=== PATIENT | male | born 1985 | race Caucasian/White ===

== ENCOUNTER 2016-10-07 10:00 | Inpatient (IN) | payer OTHER, MEDICAID ==
--- NOTE | 2016-10-06 10:43 | GHP ---
[f rep st] PREOP HISTORY AND PHYSICAL DATE OF ADMISSION: 10/07/2016 PROBLEM: Left hip avascular necrosis. HISTORY OF PRESENT ILLNESS: The patient is a 31-year-old male who will be admitted for a left total hip arthroplasty with Dr. Maddox at the [facility] on October 07, 2016. The patient first became aware of his left hip pain 5 months ago. It was fairly insidious in onset. Initially he tried physical therapy, which did not help. After several months of worsening pain, he sought orthopedic consultation and was diagnosed with AVN, both by plain film and confirmed with MRI. Because of his worsening pain, the patient has elected to proceed with a total hip arthroplasty. PAST MEDICAL HISTORY: Pertinent for schizophrenia and COPD and hepatitis of unknown type. CURRENT MEDICATIONS: Advair Diskus, aripiprazole 20 mg, baclofen 10 mg, benztropine 1 mg, clonazepam 0.25 mg, gabapentin 300 mg, hydrocodone 7.5/ ibuprofen 200 mg, montelukast 10 mg. ALLERGIES: None. SOCIAL HISTORY: The patient lives at [facility]. He is single. He smokes half pack of cigarettes per day since the age of 11. He has no alcohol intake. FAMILY HISTORY: Noncontributory. PAST SURGICAL HISTORY: None. PHYSICAL EXAMINATION: GENERAL: He is a healthy-appearing 31-year-old male. VITALS: Height 5 feet 9 inches tall, weight 250 pounds, BMI 36.9. HEENT: Head is normocephalic, atraumatic. Eyes are PERRLA. Conjunctivae and sclerae clear. Mouth: He has good oral hygiene without any loose teeth. LUNGS: Clear. HEART: Regular rate and rhythm without murmurs, gallops, or rubs. EXTREMITIES: Pertinent findings are limited due to the patient's left hip. He has full hip extension, 90 degrees of flexion, 20 degrees of external rotation, 10 degrees of internal rotation and 30 degrees of abduction. DIAGNOSTIC IMAGING: Recent x-rays and MRI shows left hip AVN of the femoral head, moderate to severe in nature. IMPRESSION ON ADMISSION: 1. Left hip avascular necrosis. 2. Asthma/chronic obstructive pulmonary disease. 3. Schizophrenia. 4. Obesity. 5. History of hepatitis of unknown type. PLAN: The plan will be for the patient to undergo a left total hip arthroplasty with Dr. Maddox at [facility] on October 07, 2016. The surgery has been described to the patient including the risks, benefits and expectations. He understands the risk of traumatic nerve injury, infection, leg length discrepancy or hip dislocation. He understands that because of his young age, he is at risk for future revision surgery. All his questions have been answered and he consents to surgery today. /[id number]/MODL MTDD
[~2016-10-07 10:00] MED LIST: ACETAMINOPHEN 325 MG TAB PO ONE; CEFAZOLIN 2 GM/DEXTR 100 ML IV ONE; CHLORHEXIDINE GLUC HIBICLENS 118 ML BTL TP ONE; DEXAMETHASONE 4 MG/ML VIAL IVP ONE; FAMOTIDINE 20 MG TAB PO ONE; NS IV ONE; POVIDONE-IODINE 20 ML in SODIUM CL IRRIG SOLUTION 500 ML IRR ONE; ROPI/epiNEPH/KETOROLAC JOINT COCKTAIL IU ONE; TRANEXAMIC ACID IV ONE
[2016-10-07] MEDS ORDERED: PROPOFOL 200 MG/20 ML VIAL ONE ×5 (10:30→12:34)
[2016-10-07] MEDS ORDERED: ceFAZolin 1 GM/5 ML SYR ONE (10:47)
[2016-10-07] MEDS ORDERED: FAMOTIDINE 20 MG TAB ONE (10:51)
[2016-10-07] MEDS ORDERED: ACETAMINOPHEN 325 MG TAB ONE (10:51)
[2016-10-07] MEDS ORDERED: DEXAMETHASONE 4 MG/ML VIAL ONE (10:51)
[2016-10-07] MEDS ORDERED: LIDOCAINE 1% 2 ML INJ ONE (10:52)
[2016-10-07] MEDS ORDERED: CEFAZOLIN 2 GM/DEXTROSE/100 ML BAG IV ONE ×2 (10:52→10:53)
[2016-10-07] MEDS ORDERED: LIDOCAINE 1% 5 ML SDV ID PRN (11:09)
[2016-10-07] MEDS ORDERED: LR 1,000 ML IV ONE (11:09)
[2016-10-07] MEDS ORDERED: MIDAZOLAM 2 MG/2 ML VIAL ONE (11:33)
--- NOTE | 2016-10-07 13:38 | POSTOPPROG ---
Post Op Note Date of Operation: 10/07/16 Surgeon: Calderon Maddox Molding Machine Operator Helper: Eliezer Anesthesiologist: Sawyer Anesthesia: IV Sedation, Spinal Post-op Diagnosis: left hip AVN Procedure: L FEDE Inf/Abcess present in the surg proc area at time of surgery?: No EBL: 100-500
[2016-10-07] MEDS ORDERED: clonazePAM 0.5 MG TAB PO PRN (13:50)
[2016-10-07] MEDS ORDERED: CALCIUM CARBONATE 500 MG CHEWABLE TAB PO PRN (13:50)
[2016-10-07] MEDS ORDERED: ALBUTEROL 60 PUFFS/8 GM MDI IH PRN (13:50)
[2016-10-07] MEDS ORDERED: PROMETHAZINE HCL 25 MG SUPPR PR PRN (13:51)
[2016-10-07] MEDS ORDERED: NS 500 ML IV PRN (13:51)
[2016-10-07] MEDS ORDERED: ONDANSETRON DISINTEGRATING 4 MG TAB PO PRN (13:51)
[2016-10-07] MEDS ORDERED: traMADol 50 MG TAB PO PRN (13:51)
[2016-10-07] MEDS ORDERED: LACTULOSE 20 GM/30 ML UDCUP PO PRN (13:51)
[2016-10-07] MEDS ORDERED: ONDANSETRON 4 MG/2 ML VIAL IVP PRN (13:51)
[2016-10-07] MEDS ORDERED: diphenhydrAMINE 25 MG CAP PO PRN (13:51)
[2016-10-07] MEDS ORDERED: PHARMACY PAIN CONSULT 1 EA MISC PRN (13:51)
[2016-10-07] MEDS ORDERED: CYCLOBENZAPRINE 10 MG TAB PO PRN (13:51)
[2016-10-07] MEDS ORDERED: DIPHENOXYLATE/ATROPINE LOMOTIL 1 TAB PO PRN (13:51)
[2016-10-07] MEDS ORDERED: BISACODYL 10 MG SUPP PR PRN (13:51)
[2016-10-07] MEDS ORDERED: PROMETHAZINE HCL 25 MG/ML INJ IVP PRN (13:51)
[2016-10-07] MEDS ORDERED: MAGNESIUM HYDROXIDE 30 ML UDCUP PO PRN (13:51)
[2016-10-07] MEDS ORDERED: POLYETHYLENE GLYCOL 3350 17 GM PKT PO PRN (13:51)
[2016-10-07] MEDS ORDERED: TEMAZEPAM 15 MG CAP PO PRN (13:51)
[2016-10-07] MEDS ORDERED: fentaNYL 100 MCG/2 ML INJ ONE (13:56)
[2016-10-07] MEDS ORDERED: HYDROmorphONE/DILAUDID 1 MG/ML SYR ONE (13:56)
[2016-10-07] MEDS ORDERED: LR 1,000 ML IV SCH (14:00)
[2016-10-07] MEDS ORDERED: oxyCODONE IR 5 MG TAB ONE (14:24)
--- NOTE | 2016-10-07 14:57 | GOP ---
[f rep st] OPERATIVE REPORT DATE OF OPERATION: 10/07/2016 SURGEON: Calderon Maddox MD AGENCY MANAGER: Norm Josue PA-C and Keith Pinto CFA. ANESTHESIA: A combination of Marcaine, spinal, and IV sedation. ANESTHESIOLOGIST: By Mj Jacques MD. PREOPERATIVE DIAGNOSIS: Left hip avascular necrosis. POSTOPERATIVE DIAGNOSIS: Left hip avascular necrosis. PROCEDURE PERFORMED: A left total hip arthroplasty, Oxinium femoral head on highly cross-linked renato yethylene cup liner. FINDINGS: DESCRIPTION OF PROCEDURE: The patient was given 2 g of preoperative IV Ancef within 60 minutes of s urgery. He also received IV tranexamic acid at a dose of 20 mg/kg. He was placed on the operating room table and given spinal anesthesia with Marcaine by Dr. Mj Jacques. He was then placed supin e and given IV sedation. A Bustamante catheter was not used. He wore a SHE stocking and SCD on the nono perative leg. He was rolled to the right lateral decubitus position. The position was secured with the pegboard table attachment. An axillary roll was used, and all pressure points were carefully p added. I was careful to lock his pelvis in a vertical position. His perineum was isolated with deb stic adhesive drapes. The left hip and left lower extremity were prepped with ChloraPrep. They wer e draped free using sterile sheets, stockinette, and Ioban plastic drapes. The World Health Organization time-out was performed to verify the correct surgical side and site an d the correct patient identity. The Thomson time-out was also performed. I made a 6-inch straight oblique posterolateral hip skin incision. Subcutaneous tissues were sharpl y divided, and hemostasis was obtained using electrocautery. He had large muscular buttocks. His f ascia paulino was identified and split along the axis of its fibers. I then curved posteriorly and pro ximally split the fascia of gluteus garth and bluntly split the muscle fibers in line with their o rientation. The Charnley self-retaining retractor was inserted. His sciatic nerve was located, par tially exposed, and protected throughout the procedure. The external rotators and the posterior hip capsule were divided as separate layers at the base of the femoral neck, tagged, and reflected post eriorly. A smooth 8-inch Steinmann pin was inserted vertically into the ilium superior to the aceta bulum. An 8-inch drill bit was inserted vertically into the greater trochanter and parallel to the first pin. The distance between the 2 was measured for leg length reference. His femoral head was dislocated p osteriorly. The femoral neck was osteotomized at the appropriate level and inclination. I was careful to preserve all the posterior and anterior capsule. His labrum was excised. I prepared the femur first. This allowed me to information services manager the amount of natural femoral neck anteversion . This, in turn, allowed me to later determine the correct amount of cup anteversion. He had appro ximately 10 degrees of natural femoral neck anteversion. The canal was opened laterally with a box chisel. I then reamed and broached sequentially up to size 13. I used a size 13 broach as a trial stem. I was careful to lateralize adequately. Appropriate retractors were inserted to expose the acetabulum. The acetabulum was reamed sequential ly up to 53 mm. I selected a 54 mm Vale and Nephew R3 solid-backed hemispherical shell. This was tapped securely into place in the proper degree of inclination and anteversion. I used the CARMEN and other natural bony acetabular landmarks to help me properly orient the cup. I inserted a screw-in m etal dome hole plug. I performed a series of trial reductions to determine length and stability. I concluded that the size 13 stem with a 0 neck length with a 36 mm head and a 20-degree lip liner ga ve me the proper combination of appropriate length and good anterior and posterior stability. A 20-degree lipped Vale and Nephew R3 highly cross-linked polyethylene liner was inserted and tappe d securely into place. I selected a Vale and Nephew Synergy stem in a size 13 with standard offset . This was inserted, press-fit and was very tight. I did one final trial reduction and confirmed t hat the 0 neck length with a 36 mm head was the proper combination. I selected a Vale and Nephew O xinium head with an outside diameter of 36 mm and a 0 mm neck length. The head was tapped securely onto the clean trunnion. The acetabulum was irrigated, cleaned, and the hip was reduced one final t princess. He had excellent anterior and posterior stability and appropriate length. 40 mL of the joint anesthetic cocktail were injected into the capsule, the deep musculature, and sub cutaneous tissues around the skin edges. The joint was thoroughly irrigated one final time with a d ilute Betadine solution. His sciatic nerve was reinspected and looked unharmed. The external rotat ors and the posterior hip capsule were repaired in separate layers with #2 FiberWire sutures through drill holes in the greater trochanter. This provided a strong posterior capsular and external rota tor repair. The fascia paulino was closed first with several interrupted [id number]-[id number] #2 FiberWire sutures, followed by a running #2 barbed Ethicon StrataFix PDO suture. Subcutaneous tissues were cl osed with a running 0 barbed Ethicon StrataFix Monoderm suture. The skin was closed with a running 3-0 barbed Ethicon StrataFix Monoderm subcuticular suture. The skin edges were reapproximated and s ealed with Dermabond glue. The wound was covered with a strip of Telfa, and everything was held in place with a piece of clear plastic Tegaderm. A long-leg SHE stocking and SCD were applied to his left lower extremity. He wore a stocking and SC D on the opposite leg during the procedure. An abduction pillow was placed between his knees. He w as awakened from anesthesia and rolled to the supine position on his [facility]. He was taken to PACU in satisfactory condition. There were no recognized intraoperative complications. The estimated blood loss was about 500 mL. The sponge and needle count were correct on 2 occasions. I used a Vale and Nephew R3 hemispherical solid-backed acetabular shell with an outside diameter of 54 mm. The liner was a Vale and Nephew R3 20-degree lipped highly cross-linked liner with an insi de diameter of 36 mm. The femoral component was a standard offset Vale and Nephew Synergy stem in size 13 and press-fit. The femoral head is a Vale and Nephew Oxinium head with a 0 neck length and a 36 mm outside diameter. Sarbjit Josue and Keith Pinto acted as surgical assistants. Their assistance was a felipe andrade. /[id number]/MODL
[2016-10-07] MEDS: KETOROLAC 30 MG/1 ML SDV IVP PRN ×2 (16:46→22:03)
[2016-10-07] MEDS: GABAPENTIN 300 MG CAP PO SCH ×2 (16:47→20:51)
[2016-10-07] MEDS: ACETAMINOPHEN 325 MG TAB PO SCH ×2 (17:30→23:16)
[2016-10-07] MEDS ORDERED: ceFAZolin 2 GM/DEXTROSE 100 ML IV SCH (20:00)
[2016-10-07] MEDS: ASPIRIN 325 MG TAB PO SCH (20:06)
[2016-10-07] MEDS: BENZTROPINE MESYLATE 1 MG TAB PO SCH (20:06)
[2016-10-07] MEDS: FAMOTIDINE 20 MG TAB PO SCH (20:07)
[2016-10-07] MEDS: SENNOSIDES/DOCUSATE SODIUM TAB PO SCH (20:08)
[2016-10-07] MEDS: oxyCODONE IR 5 MG TAB PO PRN ×2 (20:08→23:16)
[2016-10-07] MEDS ORDERED: ceFAZolin 2 GM in D5W 100 ML IV SCH (20:30)
[2016-10-07] MEDS: ceFAZolin 2 GM in D5W 100 ML IV SCH (20:50)
[2016-10-07] MEDS: FLUTICASONE/SALMETER 250/50MCG DISKUS IH SCH (22:04)
[2016-10-08] MEDS: oxyCODONE IR 5 MG TAB PO PRN ×4 (02:34→14:06)
[2016-10-08] MEDS: ceFAZolin 2 GM in D5W 100 ML IV SCH (04:16)
[2016-10-08] MEDS: KETOROLAC 30 MG/1 ML SDV IVP PRN (04:23)
[2016-10-08] MEDS: ACETAMINOPHEN 325 MG TAB PO SCH ×2 (04:38→12:02)
[2016-10-08 05:22] LABS: HEMATOCRIT 42.5 % (40.0-51.0); HEMOGLOBIN 13.8 g/dL (13.7-17.5)
[2016-10-08] MEDS: GABAPENTIN 300 MG CAP PO SCH ×2 (07:52→15:43)
[2016-10-08] MEDS: BENZTROPINE MESYLATE 1 MG TAB PO SCH (07:53)
[2016-10-08] MEDS: ASPIRIN 325 MG TAB PO SCH (07:53)
[2016-10-08] MEDS: FAMOTIDINE 20 MG TAB PO SCH (07:53)
[2016-10-08] MEDS: SENNOSIDES/DOCUSATE SODIUM TAB PO SCH (07:53)
[2016-10-08] MEDS: FLUTICASONE/SALMETER 250/50MCG DISKUS IH SCH (08:16)
[2016-10-08] MEDS ORDERED: FERROUS SULFATE 140 MG TAB.ER PO SCH (09:00)
[2016-10-08] MEDS ORDERED: MONTELUKAST SODIUM 10 MG TAB PO SCH (09:00)
[2016-10-08] MEDS ORDERED: ARIPiprazole 10 MG TAB PO SCH (09:00)
--- NOTE | 2016-10-08 09:28 | SOAPPROG ---
SOAP Progress Note Assessment/Plan: Assessment: Afebrile. Up and walking in [place]. Moderate pain. Sciatic nerve intact. H/H is good. Films look good. Plan:Continue PT To Funmi Diop today. 10/08/16 09:27 Objective: Vital Signs Temp Pulse Resp BP Pulse Ox 36.6 C 71 12 111/59 L 92 10/08/16 07:15 10/08/16 08:17 10/08/16 08:17 10/08/16 07:15 10/08/16 08:17 Laboratory Results 10/08/16 04:59 10/07/16 10/08/16 10/09/16 05:59 05:59 05:59 Intake Total 8904 337 Output Total 1999 525 Balance 695 -75 ICD10 Worksheet Patient Problems: Problems Problem Status Onset Avascular necrosis of bone of left hip Acute Abdominal pain Acute Pain, lower leg Acute Spinal cord disease Acute
--- NOTE | 2016-10-08 09:32 | PDIAF ---
- Diagnosis Diagnosis: left hip AVN Code Status: Full Code - Medication Management Discharge Medications: Medications to Continue on Transfer Gabapentin [Neurontin 300 MG (*)] 300 mg PO TID #90 cap 10/05/14 [Last Taken 19:00] Albuterol [Proventil Inhaler HFA (*)] 2 puffs IH Q6HRS PRN 04/22/15 [Last Taken 04/22/15 19:00] Fluticasone/Salmeter 250/50Mcg [Advair 250/50 (*)] 1 puffs IH BID 04/22/15 [ Last Taken 04/22/15 19:00] ARIPIPRAZOLE [Abilify 20mg] 20 mg PO DAILY 10/01/16 [Last Taken Unknown] Baclofen [Baclofen 10 mg (*)] 10 mg PO BID 10/01/16 [Last Taken Unknown] Benztropine Mesylate [Cogentin] 1 mg PO BID 10/01/16 [Last Taken Unknown] Calcium Carbonate [Tums 500MG (*)] 1,000 mg PO Q6HRS PRN 10/01/16 [Last Taken Unknown] Montelukast Sodium [Singulair 10 mg (*)] 10 mg PO DAILY 10/01/16 [Last Taken Unknown] Ondansetron Odt [Zofran Odt 4 mg (*)] 4 mg PO Q8HRS PRN 10/01/16 [Last Taken Unknown] clonazePAM [Klonopin (*)] 0.25 mg PO BID PRN 10/01/16 [Last Taken Unknown] HYDROcodone/IBUPROFEN [Hydrocodone-Ibuprofen 7.5-200] 1 each PO Q4HRS PRN [Last Taken Unknown] Acetaminophen [Tylenol 325mg (*)] 650 mg PO Q6HRS #0 tab 10/08/16 [Last Taken Unknown] Aspirin [Aspirin 325 mg (*)] 325 mg PO DAILY #21 tab 10/08/16 [Last Taken Unknown] Ferrous Sulfate [Slow Fe 140 MG (*)] 140 mg PO DAILY #30 tab.er 10/08/16 [Last Taken Unknown] oxyCODONE IR [Oxycodone Ir (*)] 5 - 10 mg PO Q3HRS PRN #0 tab 10/08/16 [Last Taken Unknown] traMADol [Ultram 50 mg (*)] 50 mg PO Q6HRS PRN #0 tab 10/08/16 [Last Taken Unknown] Discharge Medications: Refer to the Discharge Home Medication list for PRN reason. PICC Care - Routine: N/A - Orders Services needed: Physical Therapy Diet Recommendation: no restrictions on diet Diet Texture: Regular Texture Diet Bustamante: Not applicable Terry Stockings Discontinue Date: 1 week Wound Care Instructions: keep clean and dry. You may shower. Activity/Weight Bearing Restrictions: as tolerated. - Follow Up Care Current Providers and Referrals: SAMREEN MONTGOMERY [Primary Care Provider] - Calderon Maddox MD [Medical Doctor] - 10/30/16 11:30 am
--- NOTE | 2016-10-08 10:11 | GDS ---
[f rep st] DISCHARGE SUMMARY ADMISSION DIAGNOSIS: Left hip avascular necrosis. DISCHARGE DIAGNOSIS: Left hip avascular necrosis. OPERATION PERFORMED: October 07, 2016, a left total hip arthroplasty. POSTOPERATIVE COMPLICATIONS: None. CONDITION ON DISCHARGE: Improved. DESCRIPTION OF HOSPITAL COURSE: The patient was admitted to the hospital on the morning of surgery. His admission hemoglobin and hematocrit were 18.7 and 57.6. The same day, under a combination of Marcaine, spinal anesthesia, and IV sedation, he underwent a left total hip arthroplasty. Postopera tively, he was treated with multimodal DVT prophylaxis, including aspirin. On the first postoperati ve day, his hemoglobin and hematocrit were 13.8 and 42.5. He was seen by Physical Therapy, and made good progress with ambulation. He had a moderate amount of bleeding on his dressing on the first p ostoperative day. The dressing was changed prior to discharge. By the time of discharge, he was af ebrile and was independent walking. DISPOSITION: The patient is transferred back to [place], where he lives. He may progress to ful l weightbearing on the left as tolerated. Use an abduction pillow in bed for 3 weeks. Continue asp irin 325 mg p.o. daily for 21 days. He has prescriptions for oxycodone and tramadol for pain contro l. He will have physical therapy at [place]. I will see him back in the office on 10/30/2016. If there are any problems, he is to call me at the office. Copy requested to: Funmi Diop /[id number]/MODL
[2016-10-08 11:24] VITALS: BP 121/69; PULSE 78; RESP 16; TEMP 97.6; O2SAT 93
[2016-10-08] MEDS ORDERED: ceFAZolin 2 GM/DEXTROSE 100 ML IV SCH (20:30)
== END 2016-10-08 16:36 | DRG 470 ==
LOC: F3E 10:00 → F3N 15:33
PROVIDERS: ADMIT Orthopaedic Surgery; ATTEND Orthopaedic Surgery
PROC: 0SRB0JZ Replacement of Left Hip Joint with Synthetic Substitute, Open Approach (ICD-10-PCS; principal; 2016-10-07 12:15)
DX: M87.80 Other osteonecrosis, unspecified bone (principal); J44.9 Chronic obstructive pulmonary disease, unspecified; E66.9 Obesity, unspecified; F20.9 Schizophrenia, unspecified; G47.33 Obstructive sleep apnea (adult) (pediatric); Z72.0 Tobacco use
CPT/HCPCS: 97116-GP; 97162-GP; 97165-GO; 97530-GP; G8978-GP-CJ; G8979-GP-CI; G8987-GO-CJ; G8988-GO-CI; J0171; J0690; J1100; J1170; J1885; J2250; J2550; J2704; J2795; J3010

== ENCOUNTER → 2017-07-14 | Outpatient (CLI) | payer OTHER, MEDICAID | LOC: FIMAGING 15:54 | PROVIDERS: ATTEND Neurological Surgery | DX: M79.671 Pain in right foot (principal); M54.31 Sciatica, right side; M48.07 Spinal stenosis, lumbosacral region; M48.061 Spinal stenosis, lumbar region without neurogenic claudication; M51.27 Other intervertebral disc displacement, lumbosacral region; M51.26 Other intervertebral disc displacement, lumbar region ==

== ENCOUNTER 2017-09-10 04:56 | Day surgery (SDC) | payer OTHER, MEDICAID ==
[2017-09-10] MEDS ORDERED: LR 1,000 ML IV ONE (05:33)
[2017-09-10] MEDS ORDERED: morphINE SR 15 MG TAB PO ONE (06:00)
[2017-09-10] MEDS ORDERED: ACETAMINOPHEN 500 MG TAB PO ONE (06:00)
[2017-09-10] MEDS ORDERED: ceFAZolin 3 GM in D5W 100 ML IV ONE (06:00)
[2017-09-10] MEDS ORDERED: GABAPENTIN 300 MG CAP PO ONE ×2 (06:00→06:30)
[2017-09-10 06:18] LABS: PLATELET COUNT 196 10^3/uL (150-400)
[2017-09-10 06:31] LABS: INR 0.96 (0.83-1.16)
--- NOTE | 2017-09-10 06:33 | PDHPUP ---
History & Physical Update H&P update statement: This history and physical update is based on an assessment of the patient which was completed after admission or registration (within 24 hours), but prior to the surgery/procedure. H&P update: H&P reviewed & patient examined, no change in patient's condition since H&P completed
[2017-09-10] MEDS ORDERED: THROMBIN (BOVINE) 5,000 UNIT VIAL TP ONE (07:01)
[2017-09-10] MEDS ORDERED: BACITRACIN 50,000 UNITS/10 ML SYR IRR ONE (07:01)
[2017-09-10] MEDS ORDERED: DEPO METHYLPREDNISOLONE 40 MG/ML SDV ONE (07:01)
[2017-09-10] MEDS ORDERED: BUPIVACAINE 0.25% 30 ML SDV ONE (07:01)
[2017-09-10] MEDS ORDERED: MIDAZOLAM 2 MG/2 ML VIAL IVP ONE (07:06)
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
[2017-09-10] MEDS ORDERED: SURGIFLO MATRIX KIT WITH THROMBIN 8 ML TP ONE (07:09)
[2017-09-10] MEDS ORDERED: CHLORHEXIDINE GLUC HIBICLENS 118 ML BTL TP ONE (07:10)
[2017-09-10] MEDS ORDERED: fentaNYL 250 MCG/5 ML INJ ONE (07:23)
[2017-09-10] MEDS ORDERED: PROPOFOL 200 MG/20 ML VIAL ONE (07:23)
[2017-09-10] MEDS ORDERED: DEXAMETHASONE 4 MG/ML VIAL ONE ×2 (07:27)
[2017-09-10] MEDS ORDERED: LIDOCAINE 2% 5 ML SDV ONE (07:27)
[2017-09-10] MEDS ORDERED: ONDANSETRON 4 MG/2 ML VIAL ONE (07:27)
[2017-09-10] MEDS ORDERED: SUCCINYLCHOLINE CHLORIDE 200 MG/10 ML SYR IVP ONE (07:27)
[2017-09-10] MEDS ORDERED: KETAMINE 200 MG/20 ML VIAL ONE (07:53)
[2017-09-10] MEDS ORDERED: ROCURONIUM 50 MG/5 ML VIAL ONE (08:15)
[2017-09-10] MEDS ORDERED: ONDANSETRON 4 MG/2 ML VIAL IVP PRN (09:29)
[2017-09-10] MEDS ORDERED: oxyCODONE IR 5 MG TAB PO PRN (09:29)
[2017-09-10] MEDS ORDERED: HYDROCODONE/APAP 5/325 TAB PO PRN (09:29)
[2017-09-10] MEDS ORDERED: LR 500 ML IV PRN (09:29)
[2017-09-10] MEDS ORDERED: ACETAMINOPHEN 500 MG TAB PO PRN (09:29)
[2017-09-10] MEDS ORDERED: NALOXONE HCL 0.4 MG/ML INJ IVP PRN (09:29)
[2017-09-10] MEDS ORDERED: fentaNYL 100 MCG/2 ML INJ IVP PRN (09:29)
[2017-09-10] MEDS ORDERED: PROMETHAZINE HCL 25 MG/ML INJ IVP PRN (09:29)
[2017-09-10] MEDS ORDERED: MEPERIDINE 25 MG/ML SYR IVP PRN (09:29)
[2017-09-10] MEDS ORDERED: ENALAPRILAT DIHYDRATE 1.25 MG/ML VIAL IVP PRN (10:03)
--- NOTE | 2017-09-10 10:03 | POSTANESTH ---
Post Anesthetic Evaluation Cardiovascular Status: Similar to Pre-Op Cond Respiratory Status: Similar to Pre-op Cond. Level of Consciousness/Mental Status: Can Participate in Eval, Mildly Sleepy, Arousable Pain Control: Adequate, Prn Tx Ordered Nausea/Vomiting Control: Adequate, Prn Tx Ordered Complications Possibly Related to Anesthesia: None Noted
--- NOTE | 2017-09-10 10:13 | POSTOPPROG ---
Post Op Note Date of Operation: 09/10/17 Surgeon: Omar Mortensen Associate Sales Representative: None Anesthesiologist: Dr. Quiñones Anesthesia: GET(General Endotracheal), Local (Specify) Pre-op Diagnosis: L5-S1 herniated disc with radiculopathy Post-op Diagnosis: Same Indication: Pain, hypersensitivity Procedure: L5-S1 microscopic discectomy Findings: Adequate decompression and discectomy Inf/Abcess present in the surg proc area at time of surgery?: No Depth: Organ Space EBL: Minimal (25 mL) Complications: None Specimen(s): None
--- NOTE | 2017-09-10 10:17 | NEUSURGPN ---
Date of Surgery: 09/10/17 (L5-S1 microscopic discectomy) Post Op Day: 0 Assessment/Plan: Adam is doing well postoperatively. There were no surgical complications. Plan: Routine PACU care Plan DC later today once criteria met Subjective: I saw Adam postoperatively in the PACU. He states that pain is currently tolerable. Objective: Awake, but drowsy. Opens eyes to voice, follows commands. Strength 5/5 BLE SILT BLE Incision c/d/i with Dermabond Urinary Catheter in Place: No - Physician Patient Seen by Dr.: Other ([place]) Neurosurgery Physical Exam - Vitals, I&O, Labs I and O 09/09/17 09/10/17 09/11/17 05:59 05:59 05:59 Weight 117.48 kg 117.48 kg Vital Signs Temp Pulse Resp BP Pulse Ox 36.4 C 111 H 14 170/96 H 95 09/10/17 09:55 09/10/17 09:55 09/10/17 10:13 09/10/17 10:13 09/10/17 10:13 Laboratory Results 09/10/17 05:31 ICD10 Worksheet Patient Problems: Problems Problem Status Onset Abdominal pain Acute Avascular necrosis of bone of left hip Acute Pain, lower leg Acute Spinal cord disease Acute
[2017-09-10] MEDS ORDERED: oxyCODONE IR 5 MG TAB ONE (11:22)
--- NOTE | 2017-09-10 11:27 | GOP ---
[f rep st] OPERATIVE REPORT DATE OF OPERATION: 09/10/2017 SURGEON: Omar Mortensen MD NEUROSURGEON: Omar Mortensen MD OIL SPRAYER: None. ANESTHESIA: General endotracheal and local. PREOPERATIVE DIAGNOSIS: L4-S1 herniated nucleus pulposus with right S1 radiculopathy. POSTOPERATIVE DIAGNOSIS: L4-S1 herniated nucleus pulposus with right S1 radiculopathy. PROCEDURE PERFORMED: 1. Right partial L5 laminectomy and medial fasciectomy for L5-S1 diskectomy (CPT code 69363). 2. Intraoperative microscope with microsurgical procedures (CPT code 14485). FINDINGS: SPECIMENS: None. ESTIMATED BLOOD LOSS: 25 mL. INDICATIONS: The patient is a 32-year-old man who has been having right foot pain for approximately 8-9 months in the setting of chronic low back pain. His description of the pain was consistent with a neuropathic or radicular type. He did get an evaluation of his foot and no intrinsic foot problems were found. On exam, he had full strength and full sensation, possibly some hypersensitivity of the sole of his right foot. An MRI was obtained and demonstrated a central L5-S1 disk herniation which w as somewhat compressing the right S1 traversing nerve root. We attempted a trial of nonoperative man agement including physical therapy, activity modification and a steroid injection but his pain persis noe without changes. So, given his symptoms, exam, imaging and failure of nonoperative management, i t was suggested that he could undergo an L5-S1 microscopic diskectomy and he was agreeable with this plan. DESCRIPTION OF PROCEDURE: Prior to surgery, all the details including indications, risks, benefits, alternatives and expected recovery were discussed with the patient and is girlfriend. Appropriate co nsents were signed. The operative site was marked by the surgeon. He was brought to the operating ro om where general anesthesia was induced and he was intubated without any complications. Additional I V was started. He was then turned into prone position on the Kalpesh table. All pressure points wer e appropriately padded. Neural monitoring was also established. The approximate site of the incisio n was marked and his low back was prepped and draped in the usual sterile fashion. The C-arm was naty ped and brought into the sterile field and, with a spinal needle in the back, a lateral image was celina en to localize the L5-S1 level. Approximately 15 mL of 0.25% Marcaine with epinephrine were then inj ected along the planned incision for local anesthesia and vasoconstriction. An approximately 1 inch midline incision was made over the L5-S1 level. The incision was carried joseph p to the level of the fascia, The METRx tubular system was then used to gain exposure of the right L5 lamina and L5-S1 interlaminar space. Sequential tubes were placed through the fascia to a depth of approximately 7 cm. At this point, the quadrant retractor was then placed over the tubes and all the tubes were removed. The retractor was expanded and then secured to the table. An instrument was pl aced in the interlaminar space and another C-arm image was obtained to confirm the correct trajectory . At this point, the intraoperative microscope was brought to the field. A small amount of paraspinous muscle overlying the lamina was removed with Bovie cautery and pituitary forceps. Once the lamina w as appropriately exposed, a matchstick bur on the high speed drill was used to thin the inferior medi al portion of the L5 lamina on the right side until the underlying ligamentum flavum was exposed. Ke rrison rongeurs were then used to complete the partial laminectomy. A small portion of the medial fa cet joint was also removed with the bur and the Kerrison rongeurs. A ball tipped probe was then used to carefully separate the ligamentum flavum from the underlying thecal sac. The ligamentum flavum w as then removed in piecemeal fashion with Kerrison rongeurs. At this point, there was good decompres mejia and exposure of the thecal sac and traversing S1 nerve root sleeve. The thecal sac and nerve ro ot sleeve were carefully retracted medially and some epidural vessels were cauterized with bipolar. A #11 scalpel blade was then used to open the annulus over the herniated disk. Small pieces of herni ated disk fragments were then removed with straight and upbiting microforceps. A final C-arm image w as obtained to confirm the L5-S1 disk space. Once all the loose and protruding disk fragments were r emoved, final hemostasis was obtained using Surgiflo and bipolar. Attention was then turned to closure. The quadrant retractor was collapsed and removed. The microsco pe was moved away from the field. The wound was thoroughly irrigated. The fascia was then closed wi th an 0 Vicryl suture, a deep adipose 2-0 Vicryl suture was placed and finally, inverted interrupted 2-0 Vicryl sutures were placed in the subcutaneous layer. An additional 15 mL of 0.25% Marcaine with epinephrine were injected for further anesthesia. A layer of Dermabond was then placed over the ski n surface. The drapes were then removed. The patient was turned back into supine position and care was returned to Anesthesia for expected extubation. Notably, all counts were correct x2 at the end of the case. There were no changes from baseline on somatosensory evoked potential monitoring and there were no n eurotonic discharges on EMG. DRAINS: None. COMPLICATIONS: None. DISPOSITION: Again, it is expected that the patient will be extubated in the operating room and then taken to post-anesthesia care unit for further recovery. /[id number]/MODL
[2017-09-10 11:36] VITALS: BP 129/98
== END 2017-09-10 12:29 ==
LOC: FSGY 04:56
PROVIDERS: ATTEND Neurological Surgery
PROC: 0SB40ZZ Excision of Lumbosacral Disc, Open Approach (ICD-10-PCS; principal; 2017-09-10 07:15)
PROC: 00NY0ZZ Release Lumbar Spinal Cord, Open Approach (ICD-10-PCS; principal; 2017-09-10 07:15)
PROC: BR131ZZ Fluoroscopy of Lumbar Disc(s) using Low Osmolar Contrast (ICD-10-PCS; 2017-09-10 07:15)
DX: M51.17 Intervertebral disc disorders with radiculopathy, lumbosacral region (principal); M79.671 Pain in right foot; M51.26 Other intervertebral disc displacement, lumbar region; G89.4 Chronic pain syndrome; F25.9 Schizoaffective disorder, unspecified; J44.9 Chronic obstructive pulmonary disease, unspecified; J96.11 Chronic respiratory failure with hypoxia; E66.9 Obesity, unspecified; F17.200 Nicotine dependence, unspecified, uncomplicated; Z96.642 Presence of left artificial hip joint; Z99.81 Dependence on supplemental oxygen
CPT/HCPCS: J0171; J0330; J0690; J1030; J1100; J2250; J2405; J2704; J3010

== ENCOUNTER → 2017-11-20 | Outpatient (CLI) | payer OTHER, MEDICAID | LOC: FIMAGING 19:30 | PROVIDERS: ATTEND Physician Assistant | DX: Z96.641 Presence of right artificial hip joint (principal) ==

== ENCOUNTER 2018-09-01 12:36 | Emergency (ER) | payer OTHER, MEDICAID ==
--- NOTE | 2018-09-01 14:13 | EDPHY ---
General - History Smoking Status: Heavy smoker Time Seen by Provider: 09/01/18 13:41 Narrative: CLINICAL IMPRESSION: Open right foot wounds with cellulitis ASSESSMENT/PLAN: 33-year-old male with reported past medical history significant for MRSA presents to the emergency department with several open wounds to the right foot surrounded by erythema and warmth suggestive of underlying cellulitis. No lymphangitis, induration, fluctuance, crepitus. Full range of motion of foot toes and ankle without pain. No clinical suggestion of septic joint. He is afebrile with no reported history of fevers. He is tachycardic initially, repeat by myself shows heart rate of 105. He denies illicit drug abuse although has multiple superficial shallow self inflicted wounds concerning for reaction to illicit drugs, specifically methamphetamine. I do not believe this patient has necrotizing fasciitis, deep space abscess or septic joint. He was placed on Keflex and Bactrim, advised to have 24 hr recheck with primary care, low threshold for return to ED sooner as discussed and discharge. DIFFERENTIAL DX: Differential includes but not limited to cellulitis, osteomyelitis, necrotizing fasciitis, septic joint, MRSA CHIEF COMPLAINT: Right foot infection HPI: 33-year-old male with past medical history of MRSA presents to the emergency department with several days of open wounds to the right foot and medial ankle that he admits he has been picking at and that are now surrounded by red warm skin. Patient reports no fever, chills, swelling, red streaks going up the legs , loss of sensation to the foot or toes. No history of trauma. Patient denies current illicit drugs but has a history of IV heroin abuse. He does not report a history of diabetes. He has been scrubbing the wounds with peroxide rinse. He reports pain with ambulation but is able to ambulate. He reports that the foot actually looks better today. He has an appointment next week to see his primary care doctor at [facility]. He is here with his international account manager because he was recently released from a half-way after back surgery. PAST MEDICAL HISTORY: Schizoaffective disorder, multiple orthopedic surgeries distant history of IV heroin abuse, patient currently denies illicit drug abuse and alcohol use. REVIEW OF SYSTEMS: A full 10 point review of systems was negative except for those mentioned in HPI. PHYSICAL EXAM: General Appearance: Alert, oriented, appropriate, cooperative, NAD, well hydrated, non-toxic appearing, tachycardic for triage 138, repeat heart rate by myself 105, no hypoxia. Respiratory: There are no retractions, lungs are clear to auscultation. Cardiac: Tachycardic, regular rhythm, no murmurs or gallops. Gastrointestinal: Abdomen is soft, nontender, bowel sounds normal, no masses/ hernia, no rigidity, guarding or focal peritoneal findings. Skin: Superficial straw low wounds to the face, suspicious for self picking possibly due to drugs. Open, non bleeding, non ulcerative wounds to the dorsum of the right foot and the medial aspect of the right ankle. There is circumferential erythema and warmth but no significant palpable tenderness, crepitus, swelling, induration or fluctuance. No lymphangitis. Clinically this patient does not appear to have a septic joint, osteomyelitis or deep space infection. MEDICAL DECISION MAKING: Patient was seen independently. Secondary supervising physician at time of evaluation was: Dr. Esquivel. Diagnosis: Right foot cellulitis. New, requires workup Summary: See Assessment and Plan for summary of ED visit Decision to obtain medical records or history from someone other than the patient: Patient's transition care professionals Patient Progress: Stable for discharge. (Cleve Hernandez) Discussion: The patient was evaluated and managed by the Physician Interior Design Faculty Member. My co- signature indicates that I have reviewed this chart and I agree with the findings and plan of care as documented. I am the secondary supervising physician. (Terri Esquivel) - Objective Vital Signs: Initial Vital Signs Temperature (C) 37 C 09/01/18 12:54 Heart Rate 128 H 09/01/18 12:54 Respiratory Rate 16 09/01/18 12:54 Blood Pressure 121/79 H 09/01/18 12:54 O2 Sat (%) 90 L 09/01/18 12:54 O2 Delivery Mode Room Air Allergies/Adverse Reactions: No Known Allergies Allergy (Verified 09/01/18 13:20) Home Medications: Medication Instructions Recorded Gabapentin [Neurontin 300 MG (*)] 300 mg PO TID #90 cap 10/05/14 Albuterol [Proventil Inhaler HFA 2 puffs IH Q6HRS PRN 04/22/15 (*)] ARIPIPRAZOLE [Abilify 20mg] 20 mg PO DAILY 10/01/16 Benztropine Mesylate [Cogentin] 1 mg PO BID 10/01/16 Montelukast Sodium [Singulair 10 10 mg PO HS 10/01/16 mg (*)] clonazePAM [Klonopin (*)] 0.25 mg PO BID PRN 10/01/16 Acetaminophen [Tylenol 325mg (*)] 650 mg PO Q6HRS #0 tab 10/08/16 Advair 250/50 (*) BID 09/08/17 Tizanidine HCl PRN 09/08/17 oxyCODONE IR [Oxycodone Ir (*)] 5 - 10 mg PO Q4HRS PRN #20 tab 09/10/17 Cephalexin [Keflex (*)] 500 mg PO QID #20 cap 09/01/18 Sulfamethox/Tmp 800/160 mg 1 tab PO BID #14 tab 09/01/18 [Bactrim Ds] traMADol [Ultram 50 mg (*)] 50 mg PO Q6 PRN #8 tab 09/01/18 Departure - Departure Disposition: Home, Routine, Self-Care Clinical Impression: Cellulitis of foot, right Condition: Fair Instructions: Cellulitis (ED) Additional Instructions: DISCHARGE INSTRUCTIONS FROM YOUR DOCTOR Thank you for visiting our emergency department today. You were treated by a physician employee relations assistant today and your case was reviewed with our ED Attending physician. Please keep in mind that discharge from the emergency department does not mean that there is nothing wrong - it simply means that we have not identified an emergency condition that requires further evaluation or treatment in the hospital. You should always plan to follow up with primary care for re- evaluation of your condition in the next 2-3 days. If you have been referred to a specialist, please call as soon as possible (today or tomorrow) to schedule your follow up appointment at the appropriate time. YOU HAVE CELLULITIS TO MULTIPLE AREAS OF THE FOOT AND NEED TO TAKE ANTIBIOTICS. PLEASE FILL THESE TODAY AND BEGIN TAKING THEM IMMEDIATELY. THE RED AREAS OF THE FOOT WERE OUTLINED. PLEASE DO NOT WASH OFF THESE MARKINGS AND MONITOR FOR INCREASED REDNESS. PLEASE MAKE A FOLLOW-UP WITH HER PRIMARY CARE DOCTOR IN 24- 48 HOURS. IF YOU ARE UNABLE TO GET IN TO PRIMARY CARE, RETURN TO THE EMERGENCY DEPARTMENT. DO NOT PICK AT THE WOUNDS. RETURN TO THE EMERGENCY DEPARTMENT IMMEDIATELY FOR INCREASED PAIN, SWELLING, PURULENT DISCHARGE, FEVERS GREATER THAN 100.4, RED STREAKS GOING UP THE LEG, OR ANY OTHER CONCERN. People present with illnesses and injuries in different ways, and it is always possible that we have missed something. You may always return for re-evaluation if symptoms worsen or if they are not improving or if you develop new/different symptoms. Again, thank you for choosing our emergency department. We hope that you feel better. Referrals: NONE *PRIMARY CARE P,. [Primary Care Provider] - As per Instructions [facility]. [Clinic] - 1-2 days without fail Prescriptions: Cephalexin [Keflex (*)] 500 mg PO QID #20 cap Sulfamethox/Tmp 800/160 mg [Bactrim Ds] 1 tab PO BID #14 tab traMADol [Ultram 50 mg (*)] 50 mg PO Q6 PRN #8 tab PRN Reason: Pain, Breakthrough
[2018-09-01 14:47] VITALS: BP 145/84
== END 2018-09-01 14:46 | disposition home or self-care (01) ==
DX: L03.115 Cellulitis of right lower limb (principal)

== ENCOUNTER 2018-10-07 23:13 | Emergency (ER) | payer OTHER, MEDICAID | END 2018-10-08 00:29 | disposition home or self-care (01) ==

== ENCOUNTER 2018-10-29 11:43 | Emergency (ER) | payer OTHER, MEDICAID | END 2018-10-29 13:00 | disposition home or self-care (01) ==